=== PATIENT | female | born 1955 | race Two or more races ===

== ENCOUNTER 2018-12-06 08:00 | Inpatient (IN) | payer OTHER ==
[~2018-12-06] VITALS: Ht 149.9 cm; Wt 79.8 kg
[2018-12-06] MEDS ORDERED: ATORVASTATIN CA40 MG PO (09:05)
[2018-12-17] MEDS ORDERED: DUI500 PO (08:07)
[2018-12-17] MEDS ORDERED: ELIQUIS2.5 MG PO (08:07)
[2018-12-17] MEDS ORDERED: PERCOCET 5-3251 EACH PO (08:07)
== END 2018-12-17 12:38 | DRG 470 ==
LOC: SURH 12-14 05:56 → O/R 12-14 05:56 → SURH 12-14 07:00
PROVIDERS: ADMIT Orthopaedic Surgery
PROC: 0MNN0ZZ Release Right Knee Bursa and Ligament, Open Approach (ICD-10-PCS; 2018-12-14)
PROC: 0SRC0J9 Replacement of Right Knee Joint with Synthetic Substitute, Cemented, Open Approach (ICD-10-PCS; principal; 2018-12-14 07:00)
DX: M17.11 Unilateral primary osteoarthritis, right knee (principal); M81.0 Age-related osteoporosis without current pathological fracture; E66.8 Other obesity

== ENCOUNTER 2018-12-28 14:17 | Emergency (ER) | payer OTHER ==
[~2018-12-28] VITALS: Ht 149.9 cm; Wt 79.4 kg
[~2018-12-28 14:17] MED LIST: ATORVASTATIN CA40 MG PO; DUI500 PO; ELIQUIS2.5 MG PO; PERCOCET 5-3251 EACH PO
== END 2018-12-28 17:38 | disposition home or self-care (01) ==
LOC: ER 14:17
DX: D64.9 Anemia, unspecified (principal)